=== PATIENT | female | born 2000 | race Caucasian/White ===

== ENCOUNTER 2022-04-25 06:29 | Emergency (ER) | payer OTHER ==
[~2022-04-25] VITALS: Ht 170.2 cm; Wt 82.9 kg
[2022-04-25] MEDS ORDERED: APAP325T4 PO (06:34)
[2022-04-25] MEDS ORDERED: ONDANSETRON 4MG/2ML VIAL IV ONE (07:35)
[2022-04-25] MEDS ORDERED: KETOROLAC 30 MG/ML 1ML VIAL IV ONE (07:35)
[2022-04-25 08:23] LABS: BASO % 0.6 % (0.0-1.0); EOS % 0.6 % (0.0-3.0); HEMATOCRIT 38.2 % (36.0-47.0); HEMOGLOBIN 12.2 g/dl (12.0-15.5); LYMPH # 1.1 10^3/uL (1.5-5.0); LYMPH % 30.8 % (24.0-44.0); MEAN CORPUSCULAR HEMOGLOBIN 28.2 pg (27.0-33.0); MEAN CORPUSCULAR HGB CONC 31.9 g/dl (32.0-36.5); MEAN CORPUSCULAR VOLUME 88.2 fl (80.0-96.0); MONO # 0.2 10^3/uL (0.0-0.8); NEUTROPHILS # 2.1 10^3/uL (1.5-8.5); NEUTROPHILS % 60.7 % (36.0-66.0); PLATELET COUNT, AUTOMATED 190 10^3/uL (150-450); RED BLOOD COUNT 4.33 10^6/uL (4.00-5.40); WHITE BLOOD COUNT 3.4 10^3/uL (4.0-10.0)
[2022-04-25 08:55] LABS: ALBUMIN 3.9 GM/DL (3.2-5.2); BILIRUBIN,DIRECT 0.1 MG/DL (0.0-0.2); BILIRUBIN,TOTAL 0.5 MG/DL (0.2-1.0); TOTAL PROTEIN 7.5 GM/DL (6.4-8.2)
[2022-04-25] MEDS ORDERED: IBUP-1022 PO (11:17)
[2022-04-25 11:33] VITALS: BP 118/65
== END 2022-04-25 11:38 | disposition home or self-care (01) ==
LOC: M ED 06:29
DX: R10.31 Right lower quadrant pain (principal)
CPT/HCPCS: 76856; 80047; 80076; 83690; 84702; 85025; 93976; 96374; 96375; 99283; J1885; J2405

== ENCOUNTER 2022-04-26 16:31 | Emergency (ER) | payer OTHER ==
[~2022-04-26] VITALS: Ht 170.2 cm; Wt 81.8 kg
[~2022-04-26 16:31] MED LIST: APAP325T4 PO; IBUP-1022 PO
[2022-04-26 22:25] LABS: BASO % 0.3 % (0.0-1.0); EOS % 0.5 % (0.0-3.0); HEMATOCRIT 38.6 % (36.0-47.0); HEMOGLOBIN 12.5 g/dl (12.0-15.5); LYMPH # 1.6 10^3/uL (1.5-5.0); LYMPH % 26.7 % (24.0-44.0); MEAN CORPUSCULAR HEMOGLOBIN 28.7 pg (27.0-33.0); MEAN CORPUSCULAR HGB CONC 32.4 g/dl (32.0-36.5); MEAN CORPUSCULAR VOLUME 88.7 fl (80.0-96.0); MONO # 0.3 10^3/uL (0.0-0.8); NEUTROPHILS # 3.9 10^3/uL (1.5-8.5); PLATELET COUNT, AUTOMATED 194 10^3/uL (150-450); RED BLOOD COUNT 4.35 10^6/uL (4.00-5.40); WHITE BLOOD COUNT 5.8 10^3/uL (4.0-10.0)
[2022-04-26 22:54] LABS: ALT/SGPT 19 U/L (12-78); BILIRUBIN,DIRECT 0.2 MG/DL (0.0-0.2); BILIRUBIN,TOTAL 0.6 MG/DL (0.2-1.0); BLOOD UREA NITROGEN 13 MG/DL (7-18); CALCIUM LEVEL 8.9 MG/DL (8.5-10.1); CARBON DIOXIDE LEVEL 28 MEQ/L (21-32); CHLORIDE LEVEL 107 MEQ/L (98-107); GLOMERULAR FILTRATION RATE > 60.0 (>60); GLUCOSE, FASTING 94 MG/DL (70-100); LIPASE 108 U/L (73-393); SODIUM LEVEL 140 MEQ/L (136-145); TOTAL PROTEIN 7.5 GM/DL (6.4-8.2)
[2022-04-27 02:05] VITALS: BP 140/86
== END 2022-04-27 04:01 | disposition home or self-care (01) ==
LOC: M ED 16:31
DX: D27.1 Benign neoplasm of left ovary (principal); R10.9 Unspecified abdominal pain

== ENCOUNTER 2023-09-26 18:20 | Emergency (ER) | payer OTHER ==
[~2023-09-26] VITALS: Ht 170.2 cm; Wt 82.4 kg
[~2023-09-26 18:20] MED LIST changes: +MIDOTAB PO
[2023-09-26 18:21] VITALS: TEMP 97.3
[2023-09-26] MEDS ORDERED: TIZA10TA (18:33)
[2023-09-26 20:04] LABS: URINE PREG TEST NEGATIVE (NEGATIVE)
[2023-09-26 21:30] LABS: CHLAMYDIA DNA AMPLIFICATION NEGATIVE (NEGATIVE); GC DNA AMPLIFICATION NEGATIVE (NEGATIVE)
[2023-09-26 21:31] VITALS: BP 108/68; O2SAT 100
== END 2023-09-26 21:32 | disposition home or self-care (01) ==
LOC: M ED 18:20
DX: N83.292 Other ovarian cyst, left side (principal); Z79.899 Other long term (current) drug therapy

== ENCOUNTER 2023-11-30 17:25 | Emergency (ER) | payer OTHER ==
[~2023-11-30] VITALS: Ht 170.2 cm; Wt 83.2 kg
[~2023-11-30 17:25] MED LIST changes: +TIZA10TA
[2023-11-30] MEDS ORDERED: BACTRIM 160MG/800MG DS TAB PO ONE (21:45)
[2023-11-30] MEDS ORDERED: SULF1TAB23 PO (21:46)
[2023-11-30 21:57] VITALS: BP 131/65; TEMP 99; O2SAT 99
== END 2023-11-30 21:59 | disposition home or self-care (01) ==
LOC: M ED 17:25
DX: N39.0 Urinary tract infection, site not specified (principal); Z87.42 Personal history of other diseases of the female genital tract; Z79.899 Other long term (current) drug therapy

== ENCOUNTER 2024-03-21 15:33 | Emergency (ER) | payer OTHER ==
[~2024-03-21] VITALS: Ht 170.2 cm; Wt 85.6 kg
[~2024-03-21 15:33] MED LIST changes: +SULF1TAB23 PO
[2024-03-21] MEDS ORDERED: IBUP200C25 PO (16:01)
[2024-03-21] MEDS: ACETAMINOPHEN 325 MG TAB PO ONE (16:58)
[2024-03-21] MEDS: LIDOCAINE 5% (LIDODERM) PATCH TD ONE (16:59)
[2024-03-21 22:20] VITALS: BP 121/62; TEMP 98.4; O2SAT 98
[2024-03-21] MEDS ORDERED: LIDO5DIS41 TD (23:24)
== END 2024-03-21 23:43 | disposition home or self-care (01) ==
LOC: M ED 15:33
DX: M51.36 Other intervertebral disc degeneration, lumbar region (principal); N83.292 Other ovarian cyst, left side; M43.17 Spondylolisthesis, lumbosacral region; M46.97 Unspecified inflammatory spondylopathy, lumbosacral region; M51.27 Other intervertebral disc displacement, lumbosacral region; Z87.42 Personal history of other diseases of the female genital tract; Z97.5 Presence of (intrauterine) contraceptive device; Z79.1 Long term (current) use of non-steroidal anti-inflammatories (NSAID); Z79.891 Long term (current) use of opiate analgesic

== ENCOUNTER → 2024-07-22 | Outpatient (CLI) | payer OTHER ==
[~2024-07-22] MED LIST changes: +IBUP200C25 PO; +LIDO5DIS41 TD
== END ==
LOC: M WHC 11:02
DX: Z13.820 Encounter for screening for osteoporosis (principal); F50.9 Eating disorder, unspecified; Z71.3 Dietary counseling and surveillance

== ENCOUNTER 2025-01-30 15:07 | Emergency (ER) | payer OTHER ==
[~2025-01-30] VITALS: Ht 170.2 cm; Wt 83.1 kg
[2025-01-30 15:09] VITALS: TEMP 98.4
[2025-01-30 17:07] LABS: HEMATOCRIT 36.2 % (36.0-47.0); HEMOGLOBIN 12.5 g/dl (12.0-15.5); MEAN CORPUSCULAR HEMOGLOBIN 31.3 pg (27.0-33.0); MEAN CORPUSCULAR HGB CONC 34.5 g/dl (32.0-36.5); MEAN CORPUSCULAR VOLUME 90.7 fl (80.0-96.0); PLATELET COUNT, AUTOMATED 200 10^3/uL (150-450); RED BLOOD COUNT 3.99 10^6/uL (4.00-5.40); WHITE BLOOD COUNT 5.4 10^3/uL (4.0-10.0)
[2025-01-30 17:12] LABS: KETONE, URINE AUTO RFX NEGATIVE (NEGATIVE); NITRITE, URINE AUTO RFX NEGATIVE (NEGATIVE); RBC, URINE AUTO RFX 0 /HPF (0-3); SQUAM EPITHELIAL CELL UR AURFX 0 /HPF (0-6); WBC, URINE AUTO RFX 0 /HPF (0-3)
[2025-01-30 17:19] LABS: LEUKOCYTE ESTERASE UR AUTO RFX TRACE (NEGATIVE)
[2025-01-30 17:30] LABS: BLOOD UREA NITROGEN 15 MG/DL (9-23); CARBON DIOXIDE LEVEL 30 MMOL/L (20-31); CHLORIDE LEVEL 104 MMOL/L (98-107); CREATININE FOR GFR 0.69 MG/DL (0.55-1.30); GLOMERULAR FILTRATION RATE > 60.0 (>60); GLUCOSE, FASTING 81 MG/DL (60-100); POTASSIUM SERUM 3.9 MMOL/L (3.5-5.1); SODIUM LEVEL 141 MMOL/L (136-145)
[2025-01-30] MEDS ORDERED: PROHANCE 279.3MG/ML 15ML VIAL As Ordered ONE (18:07)
[2025-01-30 18:19] LABS: FREE THYROXINE INDEX 3.2 % (1.3-4.8); T UPTAKE 47.1 % (22.5-37.0); THYROXINE (T4) 6.7 UG/DL (4.5-10.9)
[2025-01-30 20:40] VITALS: BP 117/57; O2SAT 96
== END 2025-01-30 20:43 | disposition home or self-care (01) ==
LOC: M ED 15:07
DX: M54.16 Radiculopathy, lumbar region (principal); Z79.1 Long term (current) use of non-steroidal anti-inflammatories (NSAID); Z79.899 Other long term (current) drug therapy
CPT/HCPCS: 36415; 72158; 80048; 81001; 84436; 84443; 84479; 85027; 87086; 99284; A9576

== ENCOUNTER → 2025-02-26 | Outpatient (REF) | payer OTHER ==
[2025-02-26 14:37] LABS: APPEARANCE, URINE CLEAR (CLEAR); BACTERIA, URINE AUTO 1+ (NEGATIVE); BILIRUBIN, URINE AUTO NEGATIVE (NEGATIVE); BLOOD, URINE BLOOD 3+ (NEGATIVE); COLOR, URINE STRAW (YELLOW); GLUCOSE, URINE (UA) AUTO NEGATIVE (NEGATIVE); KETONE, URINE AUTO NEGATIVE (NEGATIVE); LEUKOCYTE ESTERASE, URINE AUTO 1+ (NEGATIVE); NITRITE, URINE AUTO NEGATIVE (NEGATIVE); PROTEIN, URINE AUTO NEGATIVE (NEGATIVE); RBC, URINE AUTO 2 /HPF (0-3); SPECIFIC GRAVITY URINE AUTO 1.005 (1.002-1.035); SQUAMOUS EPITHELIAL CELL UR AU 1 /HPF (0-6); UROBILINOGEN, URINE AUTO 0.2 mg/dL (0.0-2.0); WBC, URINE AUTO 1 /HPF (0-3)
== END ==
LOC: M LAB REF 13:51
PROVIDERS: ATTEND Physician Assistant
DX: N39.0 Urinary tract infection, site not specified (principal)

== ENCOUNTER 2025-06-22 10:14 | Emergency (ER) | payer OTHER ==
[~2025-06-22] VITALS: Ht 170.2 cm; Wt 86.0 kg
[~2025-06-22 10:14] MED LIST changes: +LIDO1ADH93 TD; -LIDO5DIS41 TD
[2025-06-22 10:16] VITALS: TEMP 96.7
[2025-06-22 11:50] LABS: BASO # 0.0 10^3/uL (0.0-0.2); BASO % 0.3 % (0.0-1.0); EOS # 0.0 10^3/uL (0.0-0.5); EOS % 0.1 % (0.0-3.0); LYMPH # 1.1 10^3/uL (1.5-5.0); LYMPH % 14.4 % (24.0-44.0); MONO # 0.3 10^3/uL (0.0-0.8); MONO % 4.2 % (2.0-8.0); NEUTROPHILS # 5.9 10^3/uL (1.5-8.5); NEUTROPHILS % 80.7 % (36.0-66.0); PLATELET COUNT, AUTOMATED 209 10^3/uL (150-450)
[2025-06-22 12:07] LABS: KETONE, URINE AUTO RFX NEGATIVE (NEGATIVE); LEUKOCYTE ESTERASE UR AUTO RFX NEGATIVE (NEGATIVE); NITRITE, URINE AUTO RFX NEGATIVE (NEGATIVE); RBC, URINE AUTO RFX 0 /HPF (0-3); SQUAM EPITHELIAL CELL UR AURFX 1 /HPF (0-6); WBC, URINE AUTO RFX 1 /HPF (0-3)
[2025-06-22 12:26] LABS: ALT/SGPT 19 U/L (7.0-40); AST/SGOT 25 U/L (<34); CALCIUM LEVEL 9.6 MG/DL (8.5-10.1); CARBON DIOXIDE LEVEL 26 MMOL/L (20-31); CHLORIDE LEVEL 103 MMOL/L (98-107); CREATININE FOR GFR 0.65 MG/DL (0.55-1.30); GLOMERULAR FILTRATION RATE > 90.0 (>60); POTASSIUM SERUM 4.2 MMOL/L (3.5-5.1); SODIUM LEVEL 140 MMOL/L (136-145)
[2025-06-22 12:29] LABS: HCG, SERUM QUALITATIVE NEGATIVE (NEGATIVE)
[2025-06-22 13:08] LABS: Trichomonas vaginalis (AMP) NOT DETECTED (NEGATIVE)
[2025-06-22 13:32] LABS: GC DNA AMPLIFICATION NEGATIVE (NEGATIVE)
[2025-06-22 13:49] VITALS: BP 106/62; O2SAT 98
== END 2025-06-22 14:44 | disposition home or self-care (01) ==
LOC: M ED 10:14
DX: N80.102 Endometriosis of left ovary, unspecified depth (principal); Z87.42 Personal history of other diseases of the female genital tract; Z79.1 Long term (current) use of non-steroidal anti-inflammatories (NSAID); Z79.899 Other long term (current) drug therapy